=== PATIENT | male | born 1965 | race Caucasian/White ===

== ENCOUNTER 2023-11-08 14:43 | Observation (INO) | payer BC, MEDICARE, SELFPAY ==
[2023-11-08] VITALS (9 sets, daily range): BP systolic 125–144; BP diastolic 57–68; BMI 44.2; BMI 43.1
[2023-11-08 10:45] LABS: Glucose - Point of Care 111 mg/dl (70-99)
--- NOTE | 2023-11-08 11:04 | ED.CVA ---
History of Present Illness
General
Chief Complaint: CVA/TIA Symptoms
Time Seen by Provider: 11/08/23 10:35
Onset of Stroke Symptoms
Onset of symptoms known: Yes
Date of onset of symptoms: 11/08/23
Time of onset of symptoms: 09:30
Travel History
Have you had any contact with someone who has COVID-19?: No
Do you have any symptoms of coronavirus? Fever > 100 degrees, chills, cough, shortness of breath, sore throat, loss of taste or smell, muscle aches, or headache?: No
History of Present Illness
History of Present Illness:
58-year-old male with history of hypertension and hyperlipidemia presents to the emergency department for evaluation of transient memory loss occurring this morning. Exact time of onset is not clear, states he was taking a shower and feels as
though there was a time that he does not recall. Currently feels well with no complaints. He has complete recollection of the events last night and early this morning. He denies any current vision changes, headache, neck pain, extremity
paresthesias, chest pain, or shortness of breath.
Past History
Past History
ED Past Medical History: CAD, HTN, Hypercholesterolemia and Other (obesity)
Social History
Tobacco: Non-smoker
Review of Systems
Review of Systems
Allergies reviewed?: Yes
All Other Systems: ROS reviewed and negative except as documented in HPI and ROS
Phy Exam
Physical Exam
Physical Exam:
GEN: Well appearing, NAD, WDWN
HEENT: Oral mucosa moist, no scleral icterus, no nasal congestion
Cardiac: Regular rate
Lung: No respiratory distress, no tachypnea
MSK: No gross deformity or injuries
Skin: Good color, no pallor or jaundice, no rashes
Neuro: AO x3; CN II-XII grossly intact. BUE strength 5/5 in all mora, sensation intact and symmetric. BLE strength 5/5 in all mora, sensation intact and symmetric
Psych: Calm, cooperative
Course
Orders/Labs/Results
Orders:
Orders
11/08/23 10:53
CT Head W/o Iv Contrast Urgent
Comment:
Reason For Exam: sudden memory loss
11/08/23 11:05
EKG [Electrocardiogram (*1)] Urgent
Reason for Study: TIA/Stroke
EKG- Treatment ONCE
11/08/23 11:10
Complete Blood Count/With Diff Urgent
Comprehensive Metabolic Panel Urgent
11/08/23 13:55
EEG Routine Routine
Reason for Exam: encephlopathy
11/08/23 14:24
Admit/Transfer Patient As Directed
Co-Sign Provider:
Level of Care: Observation services
Assign to:: Telemetry
Physician / Group: verdugo/hospitalist
Diagnosis: TGA vs. r/o CVA
Reason for Telemetry: CVA/TIA
Date to Stop Telemetry: 11/11/23
Time to Stop Telemetry: 11:00
11/08/23 14:25
Code Status As Directed
Resuscitation Status: Full Code
11/08/23 16:00
Tizanidine [Zanaflex] 4 mg PO TID
11/11/23 11:00
DC Protocol for Telemetry ONCE
Abnormal Lab Results
11/08/23 11/08/23
10:43 11:10
RBC 4.59 L 10^6/uL
(4.70-6.10)
MCH 31.2 H pg
(27.0-31.0)
Absolute Eos (auto) 0.8 H 10^3/uL
(0-0.7)
Eosinophils % 15.0 H %
(0-6)
BUN 31 H mg/dl
(9-20)
Glucose 119 H mg/dl
(70-99)
POC Glucose 111 H mg/dl
(70-99)
11/08/23 11:10
11/08/23 11:10
Vital Signs
Initial and Last Documented VS:
Initial Vital Signs
Temp Pulse Resp BP Pulse Ox
98.3 F 65 18 143/68 98
11/08/23 10:50 11/08/23 10:50 11/08/23 10:50 11/08/23 10:50 11/08/23 10:50
Last Documented Vital Signs
Temp Pulse Resp BP Pulse Ox
97.8 F 59 16 143/63 95
11/08/23 16:17 11/08/23 16:17 11/08/23 16:17 11/08/23 16:17 11/08/23 16:17
MDM/Problems Addressed
MDM/Problems Addressed:
Patient no focal neurologic deficits. Certainly concerning for possible TIA given the transient period of confusion. Reviewed case with neurology who recommended admission despite his relatively recent extensive stroke workup last year at [facility]
Kia's that was reportedly unremarkable.
*Critical Care Note
Total Time (30-74mins, 75-104mins- exclusive of procedures): Not Applicable
Update Note
Update Note:
Discussed the symptoms with patient and who indicates that she can the bathroom when on the underwear and seems confused, could not answer simple orientation questions, episode lasted approx 30 mins
ED Attending Note
-
Portions of this chart may have been created with voice recognition software.� Occasional wrong word or��sound alike� substitutions may have occurred due to the inherent limitations of voice recognition software.
Discharge Plan
Departure
Patient Disposition: Admit
Date of Disposition: 11/08/23
Time of Disposition: 12:35
Admit to: Telemetry
Presentation/result/management discussed w/ accepting MD/DO: Hospitalist
Discharge Problem:
Transient ischemic attack (TIA)
Interventions
Interventions:
*Risk Screen - Suicide Last Done: 11/08/23 10:50
*General Assessment Last Done: 11/08/23 10:50
*Neglect/Abuse Screening Last Done: 11/08/23 10:50
ED- Fall Risk Assessment Last Done: 11/08/23 10:58
*ED COVID-19 Vaccine History Last Done: 11/08/23 10:50
ED- Pulmonary Assessment Last Done: 11/08/23 10:58
ED- Neurological Assessment Last Done: 11/08/23 17:31
ED- Cardiac Assessment Last Done: 11/08/23 10:58
ED Swallowing Screen Last Done: 11/08/23 12:00
[2023-11-08 11:20] LABS: % Basophils 1.2 % (0-2); % Immature Granulocytes 0.4 % (0-0.5); % Lymphocytes 23.4 % (20.5-51.1); % Monocytes 8.2 % (1.7-9.3); % Neutrophils 51.8 % (42.2-75.2); Absolute Basophils 0.1 10^3/uL (0-0.2); Absolute Eosinophils 0.8 10^3/uL (0-0.7); Absolute Lymphocytes 1.2 10^3/uL (1.2-3.4); Absolute Monocytes 0.4 10^3/uL (0.1-0.6); Absolute Neutrophils 2.6 10^3/uL (1.4-6.5); Hematocrit 41.6 % (39.0-52.0); Hemoglobin 14.3 g/dL (13.0-18.0); Mean Corp Hgb Conc. 34.4 g/dL (33.0-37.0); Mean Corpuscular Hgb 31.2 pg (27.0-31.0); Mean Corpuscular Volume 90.6 fL (80.0-94.0); Mean Platelet Volume 9.8 fL (7.4-10.4); Nucleated Red Blood Cells % 0 % (-); Platelet Count 194 10^3/uL (130-400); Red Blood Cell Count 4.59 10^6/uL (4.70-6.10); Red Cell Dist. Width 12.8 % (11.5-14.5)
[2023-11-08 11:35] LABS: ALT (SGPT) 44 U/L (0-50); AST (SGOT) 42 U/L (17-59); Albumin 4.3 g/dl (3.5-5.0); Alkaline Phosphatase 75 U/L (38-126); Blood Urea Nitrogen 31 mg/dl (9-20); Calcium 9.5 mg/dl (8.4-10.2); Carbon Dioxide 26 mmol/L (22-30); Chloride 106 mmol/L (98-107); Estimated Creatinine Clearance 123 ml/min; Glucose 119 mg/dl (70-99); Potassium 4.3 mmol/L (3.5-5.1); Sodium 136 mmol/L (135-145); Total Bilirubin 0.7 mg/dl (0.2-1.3); Total Protein 6.8 g/dl (6.3-8.2); eGFR > 60.00
--- NOTE | 2023-11-08 13:44 | CON.NEURO ---
Consultation
Order
CC: none
HPI: This is a 58-year-old RH male who presented to [facility] on November 08, 2023 with encephalopathy.
Mr. Martino reports no complaints except for chronic lower back pain. 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 When he was asked his date of , month, year name
of the president-he was reportedly unable to answer. Mr. Zimmerman was able to converse fluently and had no associated dysarthria, perseveration, receptive or expressive difficulties.
The patient states that he took Percocet and Tizanidine around 7 AM, went to take shower. HE recalls drying himself up before he recalls EMS peroneal being in his house.
ER VS: 143/68, 65, 98% on room air, afebrile
PDMP: Oxycodone-Acetaminophen 7.5-325 90 tabs filled in on 09/05/2023, 10/03/2023, 11/02/2023.
Labs: Glucose�119, normal WBCs, sodium, creatinine.
EKG: Sinus bradycardia at 57, P-R Int : 208 ms, QTc Int : 408 ms,
PMH: R Akins's palsy, h/o lumbar osteomyelitis, CAD, HTN, DLP, BMI 44, vit D deficiency, chronic back pain on opioid therapy
PSH: lumbar kyphoplasty/abscess evacuation?
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
FH:both parents-stroke
All: Penicillin, daptomycin
ROS:Constitutional: Negative. Negative for chills, fever and unexpected weight change.
HENT: Negative for ear pain, hearing loss, tinnitus and trouble swallowing.
Eyes: Negative. Negative for photophobia, pain and visual disturbance.
Respiratory: Negative for cough, choking and shortness of breath.
Cardiovascular: Negative for chest pain, palpitations and leg swelling.
Gastrointestinal: Negative for abdominal pain and vomiting.
Endocrine: Negative. Negative for cold intolerance.
Genitourinary: Negative for dysuria, flank pain and urgency.
Musculoskeletal: Positive for chronic back pain
Skin: Negative for rash.
Allergic/Immunologic: Negative. Negative for immunocompromised state.
Neurological: Negative for dizziness, tremors, seizures, speech difficulty, numbness and headaches.
Psychiatric/Behavioral: Negative for behavioral problems, confusion and hallucinations.
General: Well developed. In no acute distress.
Cardio: Regular rate and rhythm without murmur. Extremities are without cyanosis or edema.
Neuro:
Mental Status: Alert, oriented to person, place, and date. Normal attention and recall. Good fund of knowledge. Follows complex requests across the midline. Comprehension, naming, and repetition intact.
Cranial Nerves: . Pupils are equally round and reactive to light. EOMs full. Visual mora full to confrontation. No ptosis. No nystagmus. V1-V3 intact to light touch and pinprick bilaterally, symmetric. Face symmetric. Normal hearing AU.
The palate elevated well. SCMs and traps 5/5. Tongue midline. No dysarthria.
Motor: Normal bulk and tone. No pronator or arm drift. Strength 5/5 throughout. No clonus.
Reflexes: Limited reflex exam due to cooperation and body habitus.
Sensory: Normal vibration and JPS.
Coordination: No dysmetria or tremor.
Gait: wide stance, truncal flexions, antalgic
Assessment and Plan:
I. Transient encephalopathy. Differential diagnosis includes vascular versus toxic, less likely epileptic
II. Camptocormia. Deferential diagnosis includes dystonia, myopathy, parkinsonism, polyneuropathy
III. Ambulatory dysfunction, h/o lumbar osteomyelitis, epidural abscess
-Fall precautions
-Brain MRI wo zachary to rule out hippocampal infarcts
-ua tox, Mg, CK
-Routine EEG
I personally reviewed all radiology and labs along with past medical records pertinent to current medical problems.
Thank you for allowing us to participate in the care of this patient. We will continue to follow. Please do not hesitate to contact us with any questions or concerns.
Subjective/Objective
Subjective Data
Date of Service: November 08, 2023
Objective Data
Vital Signs
Temp Pulse Resp BP Pulse Ox
36.8 C 65 18 143/68 97
11/08/23 10:50 11/08/23 10:50 11/08/23 10:50 11/08/23 10:50 11/08/23 10:58
Lab Results
11/08/23 11:10
11/08/23 11:10
Sodium 136 mmol/L (135-145) 11/08/23 11:10
Potassium 4.3 mmol/L (3.5-5.1) 11/08/23 11:10
BUN 31 mg/dl (9-20) H 11/08/23 11:10
Glucose 119 mg/dl (70-99) H 11/08/23 11:10
Calcium 9.5 mg/dl (8.4-10.2) 11/08/23 11:10
Patient Allergies
daptomycin Allergy (Verified 11/08/23 10:57)
Unknown
Penicillins Allergy (Verified 11/08/23 10:57)
Unknown
Medications
-
Home Medications
Medication Instructions Recorded
aspirin 325 mg tablet 325 mg PO HS Blood Clot 12/13/21
Prevention/Tx
cholecalciferol (vitamin D3) 50 2,000 unit PO DAILY Supplement 12/13/21
mcg (2,000 unit) tablet
docosahexaenoic acid (dha)-epa 120 1 cap PO DAILY Supplement 12/13/21
mg-180 mg capsule
fenofibrate nanocrystallized 145 145 mg PO HS High Cholesterol 12/13/21
mg tablet
multivitamin 1 ea PO DAILY Supplement 12/13/21
nitroglycerin 0.4 mg sublingual 0.4 mg sublingual [id number] PRN 12/13/21
tablet chest pain
rosuvastatin 40 mg tablet 40 mg PO HS High Cholesterol 12/13/21
tizanidine 4 mg tablet 4 mg PO TID Muscle Spasms 12/13/21
irbesartan 150 2 tab PO DAILY Blood Pressure 11/08/23
mg-hydrochlorothiazide 12.5 mg
tablet
metoprolol succinate 100 mg 100 mg PO HS Blood Pressure 11/08/23
tablet,extended release 24 hr
(Toprol XL)
oxycodone-acetaminophen 7.5 mg-325 1 tab PO TID pain 11/08/23
mg tablet
sennosides 8.6 mg tablet (senna) 8.6 mg PO DAILYPRN PRN constipation 11/08/23
Vital Signs and Labs
-
Vital Signs and Labs:
Vital Signs
Temp Pulse Resp BP Pulse Ox
36.8 C 65 18 143/68 97
11/08/23 10:50 11/08/23 10:50 11/08/23 10:50 11/08/23 10:50 11/08/23 10:58
Lab Results
11/08/23 11:10
11/08/23 11:10
Sodium 136 mmol/L (135-145) 11/08/23 11:10
Potassium 4.3 mmol/L (3.5-5.1) 11/08/23 11:10
BUN 31 mg/dl (9-20) H 11/08/23 11:10
Glucose 119 mg/dl (70-99) H 11/08/23 11:10
Calcium 9.5 mg/dl (8.4-10.2) 11/08/23 11:10
Home Medications
-
Home Medications
aspirin 325 mg tablet 325 mg PO HS Blood Clot Prevention/Tx 12/13/21
cholecalciferol (vitamin D3) 50 mcg (2,000 unit) tablet 2,000 unit PO DAILY Supplement 12/13/21
docosahexaenoic acid (dha)-epa 120 mg-180 mg capsule 1 cap PO DAILY Supplement 12/13/21
fenofibrate nanocrystallized 145 mg tablet 145 mg PO HS High Cholesterol 12/13/21
multivitamin 1 ea PO DAILY Supplement 12/13/21
nitroglycerin 0.4 mg sublingual tablet 0.4 mg sublingual [id number] PRN chest pain 12/13/21
rosuvastatin 40 mg tablet 40 mg PO HS High Cholesterol 12/13/21
tizanidine 4 mg tablet 4 mg PO TID Muscle Spasms 12/13/21
irbesartan 150 mg-hydrochlorothiazide 12.5 mg tablet 2 tab PO DAILY Blood Pressure 11/08/23
metoprolol succinate 100 mg tablet,extended release 24 hr (Toprol XL) 100 mg PO HS Blood Pressure 11/08/23
oxycodone-acetaminophen 7.5 mg-325 mg tablet 1 tab PO TID pain 11/08/23
sennosides 8.6 mg tablet (senna) 8.6 mg PO DAILYPRN PRN constipation 11/08/23
--- NOTE | 2023-11-08 14:13 | HPS.HSE ---
Family Physician
-
Family Physician: Sabrina Warren
Chief Complaint
-
I forgot
History of Present Illness
58-year-old male extensive past medical history who is presenting from home with loss of memory. Patient stated he woke up this morning without any confusion. Patient stated he did activity of daily living brushing his teeth. Subsequently
afterwards he went to take a shower and after he came back he was unable to recall. was at bedside and asked him questions about date, month, year and name of the president. Patient was not able to recall any of those events. Patient during
this time did not complain of any numbing tingling or vision problems or focal weakness. Patient denies any headache. Patient did not have alcohol last night. No prior history of TIA or CVA. Denies any neck pain or vision problems or diplopia or
chest pain or shortness of breath or nausea or vomiting, focal weakness.
Medical History
Past Medical History
Past Medical History: Reports Other
Additional Past Medical History:
Primary hypertension
Hyperlipidemia
History of lumbar spine osteomyelitis status post surgery
Akins's palsy
Left lower extremity cellulitis
Morbid obesity due to excess calories
CAD status post stent
Chronic opiate dependent
Past Surgical History: Reports Other
Additional Past Surgical History:
Spinal lumbar fusion and drainage
Achilles tendon repair
Social History
Tobacco: Former Smoker
Alcohol: Occasional
Personal:
Living: With Family
Family History
Family History: Not pertinent
Allergies / Home Medications
Allergies reflects when Allergies were last updated in [email or web address].
Home Medications with original date entered in [email or web address]
Allergy/Medication List:
Allergies
Allergy/AdvReac Type Severity Reaction Status Date / Time
daptomycin Allergy Unknown Verified 11/08/23 10:57
Penicillins Allergy Unknown Verified 11/08/23 10:57
Home Medications
aspirin 325 mg tablet 325 mg PO HS Blood Clot Prevention/Tx 12/13/21
cholecalciferol (vitamin D3) 50 mcg (2,000 unit) tablet 2,000 unit PO DAILY Supplement 12/13/21
docosahexaenoic acid (dha)-epa 120 mg-180 mg capsule 1 cap PO DAILY Supplement 12/13/21
fenofibrate nanocrystallized 145 mg tablet 145 mg PO HS High Cholesterol 12/13/21
multivitamin 1 ea PO DAILY Supplement 12/13/21
nitroglycerin 0.4 mg sublingual tablet 0.4 mg sublingual [id number] PRN chest pain 12/13/21
rosuvastatin 40 mg tablet 40 mg PO HS High Cholesterol 12/13/21
tizanidine 4 mg tablet 4 mg PO TID Muscle Spasms 12/13/21
irbesartan 150 mg-hydrochlorothiazide 12.5 mg tablet 2 tab PO DAILY Blood Pressure 11/08/23
metoprolol succinate 100 mg tablet,extended release 24 hr (Toprol XL) 100 mg PO HS Blood Pressure 11/08/23
oxycodone-acetaminophen 7.5 mg-325 mg tablet 1 tab PO TID pain 11/08/23
sennosides 8.6 mg tablet (senna) 8.6 mg PO DAILYPRN PRN constipation 11/08/23
Review of Systems
-
History Source: Patient and Family
A 12 point ROS was completed and negative except as noted: Yes
Physical Exam
Vital Signs
Vital Signs
Temp Pulse Resp BP Pulse Ox
98.3 F 65 18 143/68 97
11/08/23 10:50 11/08/23 10:50 11/08/23 10:50 11/08/23 10:50 11/08/23 10:58
Physical Exam
General: Well Developed, Well Nourished, No Apparent Distress and Morbidly Obese
HEENT: NormoCephalic, Anicteric, Moist mucous membranes, Atraumatic, PERRLA, Nose Appears Normal and Ears Appear Normal; No Hearing Impaired
Respiratory: Clear
Cardiac: S1/S2 and Regular Rhythm; No Murmur or Rub
GI: Soft, Non Tender, Non Distended and Normal Bowel Sounds; No Organomegaly
Rectal: Deferred by Provider
Genito-urinary: Deferred by me
Musculoskeletal: No Clubbing, No Cyanosis, Edema, Left Lower Extremity (trace-chronic. ) and Edema, Right Lower Extremity
Skin: Warm; No Rash
Neuro: Awake, Alert, Oriented, AO x 3, No Motor Deficits and Nonfocal/grossly intact
Psych: Calm
Laboratory Results
-
11/08/23 11:10
11/08/23 11:10
Laboratory Results
Total Bilirubin 0.7 mg/dl (0.2-1.3) 11/08/23 11:10
AST 42 U/L (17-59) 11/08/23 11:10
ALT 44 U/L (0-50) 11/08/23 11:10
Alkaline Phosphatase 75 U/L (38-126) 11/08/23 11:10
Impression/Plan
-
#Memory loss likely secondary to transient global amnesia versus TIA rule out CVA vs. low likelihood of epileptic amnesia
CT head negative for acute pathology
MRI of the brain
Defer MRA to neurology
Neurological checks
NIHSS
PT and OT in the morning
Monitor on telemetry
Continue with aspirin. Check aspirin Verify assay
Check a1c
EEG per neurology
Neurological evaluation
#Primary hypertension
Continue ARB/HCTZ and Toprol
#Hyperlipidemia
Check lipid panel continue statin
Chronic back pain opioid dependent
Continue home pain med regiment
PDMP checked and accurate
Continue tizanidine
CAD status post stents
Continue aspirin beta-hamida and statin
Morbid obesity due to excess calories
Counseled on weight loss affects all aspects of medical care
DVT ppx-scds for now
d/w with spouse at bedside in details
I spent a total of 77 minutes with the patient or on the floor. More than 50% of this time involved counseling and coordination of care.
[2023-11-08] MEDS: ROXICODONE 7.5 MG PO ×2 (16:13→21:54)
[2023-11-08] MEDS: TYLENOL 325 MG PO ×2 (16:14→21:56)
[2023-11-08] MEDS: ZANAFLEX 4 MG PO ×2 (16:15→21:54)
--- NOTE | 2023-11-08 16:28 | EEGC.RPT ---
Continuous EEG Report
Recording
Start Date of Data Reviewed: 11/08/23
Done with Video Recording: Yes
Electrocardiogram: Unremarkable
Report
TECHNICAL REMARKS:��This is a technically satisfactory eighteen channel record employing 21 disc electrodes applied according to a measured international 10-20 electrode placement system.��There were no significant technical difficulties.��The study
was done on a [employer] Software System.
STUDY DURATION: 29 mins, 40 secs
�
CLINICAL HISTORY: This is a 58-year-old man with transient encephalopathy. This study was requested to look for epileptiform abnormalities
�
MEDICATIONS: no AED
REPORT: �At the onset of the EEG, the patient is awake. The background activity consists of 10.5-11.5 Hz, persistent, posteriorly dominant, moderate amplitude, symmetric and rhythmic activity that is reactive to eye-opening. Anteriorly, it consists
of a mixture of low voltage indeterminate activity and 20-25 Hz, persistent, low amplitude, symmetric and rhythmic activity.� Stepwise intermittent photic stimulation (1-20 Hz) and hyperventilation did not induce any abnormalities. Drowsiness is
characterized by low amplitude mixed frequency activity, decreased eye blinking, and muscle artifact.
�
IMPRESSION: �This is a normal awake and drowsy EEG. There is no evidence of focal slowing or epileptiform activity.� A normal EEG does not rule out epilepsy. If the clinical picture warrants, a sleep-deprived awake and sleep record may be helpful.
�
--- NOTE | 2023-11-08 18:34 | TRANSFER ---
Pt transferred from ED to room 423. Ambulated from stretcher to bed with single point cane. Pt with mild lower back pain, but denying need for medication at this time. AAOx3, oriented to room and plan of care. Call chen in reach.
[2023-11-08] MEDS: TOPROL XL 100 MG PO (21:56)
[2023-11-08] MEDS: TRICOR 145 MG PO (21:57)
[2023-11-08] MEDS: CRESTOR 40 MG PO (21:57)
[2023-11-08] MEDS: ASPIRIN 325 MG PO (22:10)
[2023-11-09 03:25] VITALS: BP 117/63
[2023-11-09 07:55] VITALS: BP 133/65
[2023-11-09 08:49] LABS: % Eosinophils 9.3 % (0-6); % Immature Granulocytes 0.2 % (0-0.5); % Lymphocytes 23.9 % (20.5-51.1); % Neutrophils 57.6 % (42.2-75.2); Absolute Basophils 0.1 10^3/uL (0-0.2); Absolute Eosinophils 0.6 10^3/uL (0-0.7); Absolute Lymphocytes 1.5 10^3/uL (1.2-3.4); Absolute Monocytes 0.5 10^3/uL (0.1-0.6); Absolute Neutrophils 3.5 10^3/uL (1.4-6.5); Hematocrit 42.6 % (39.0-52.0); Hemoglobin 14.7 g/dL (13.0-18.0); Mean Corp Hgb Conc. 34.5 g/dL (33.0-37.0); Mean Corpuscular Hgb 30.8 pg (27.0-31.0); Mean Corpuscular Volume 89.3 fL (80.0-94.0); Mean Platelet Volume 9.9 fL (7.4-10.4); Nucleated Red Blood Cells % 0 % (-); Platelet Count 213 10^3/uL (130-400); Red Blood Cell Count 4.77 10^6/uL (4.70-6.10); Red Cell Dist. Width 12.9 % (11.5-14.5); White Blood Cell Count 6.1 10^3/uL (4.8-10.8)
[2023-11-09 08:59] LABS: Blood Urea Nitrogen 30 mg/dl (9-20); Carbon Dioxide 23 mmol/L (22-30); Chloride 104 mmol/L (98-107); Estimated Creatinine Clearance > 125 ml/min; Glucose 128 mg/dl (70-99); HDL Cholesterol 40 mg/dl; LDL Cholesterol, Calculated 71 mg/dl; Potassium 4.2 mmol/L (3.5-5.1); Sodium 140 mmol/L (135-145); Total Cholesterol 144 mg/dl (50-199); Triglyceride 168 mg/dl (10-149); Very Low Density Lipoprotein 33 mg/dl (0-30); eGFR > 60.00
[2023-11-09 09:25] LABS: VerifyNow Aspirin 468 ARU
[2023-11-09 09:29] LABS: Glycohemoglobin (HgbA1c) 6.1 % (4.0-5.6)
[2023-11-09 09:36] LABS: Magnesium 1.8 mg/dl (1.6-2.3)
--- NOTE | 2023-11-09 09:48 | PTOTSP ---
Speech Therapy Evaluation
Speech/language at reported baseline. Oropharyngeal function appears intact at the bedside.
Recommend
1. Continue Regular solids / Thin liquids
2. Meds orally per pt preference and RN discretion
3. No further acute LOADING UNIT TOOL SETTER needs. LOADING UNIT TOOL SETTER signing off please reconsult as needed.
[2023-11-09] MEDS: AVAPRO 300 MG PO (10:35)
[2023-11-09] MEDS: ORETIC 25 MG PO (10:36)
[2023-11-09] MEDS: ZANAFLEX 4 MG PO ×2 (10:36→16:20)
[2023-11-09] MEDS: THERAGRAN 1 TABLET PO (10:36)
[2023-11-09] MEDS: VITAMIN D3 (cholecalciferol) 50 MCG PO (10:36)
[2023-11-09] MEDS: ROXICODONE 7.5 MG PO ×2 (10:37→16:20)
[2023-11-09] MEDS: TYLENOL 325 MG PO ×2 (10:37→16:20)
[2023-11-09 10:39] LABS: Erythrocyte Sed Rate 2 mm/hour (0-20)
[2023-11-09 10:55] VITALS: BP 155/81; PULSE 65; O2SAT 94
--- NOTE | 2023-11-09 11:12 | PTOTSP ---
Patient demonstrates functional independence and good insight into safety with bed mobility, transfers and ambulation with use of SPC which he requires secondary to chronic low back pain as well as knee pain.
At this time does not demonstrate continued skilled physical therapy needs and will be discharged. If needs change, please re-consult.
[2023-11-09 11:30] VITALS: BP 129/67
--- NOTE | 2023-11-09 12:07 | W.PN.HOSP.TC ---
Addendum entered and electronically signed by Emery Lindsey MD 11/09/23 15:03:
Discussed results with neurologist and neurologist no acute finding and patient can be discharged
Patient was informed of the MRI results and agreed with discharge planning home
More than 30 minutes spent in discharge including
Final examination of the patient
Summarizing hospital stay
Instructions for continuing care to all relevant caregivers
Preparation of discharge records, prescriptions, and referral forms
Total time spent (in minutes): 42
Original Note:
Today's Communication/Plan
-
await neuro recs
MR brain pending
pain control
Assessment / Plan
Assessment / Plan
#Memory loss likely secondary to transient global amnesia versus TIA rule out CVA vs. low likelihood of epileptic amnesia
CT head negative for acute pathology
MRI of the brain pending
Defer MRA to neurology
Neurological checks
NIHSS
Continue with aspirin. Check aspirin Verify assay-appropriate
Check a1c at 6.1
EEG per neurology completed
Neurological evaluation pending
#Primary hypertension
Continue ARB/HCTZ and Toprol
#Hyperlipidemia
LDL 71. Cont statin.
Chronic back pain opioid dependent
Continue home pain med regiment
PDMP checked and accurate
Continue tizanidine
CAD status post stents
Continue aspirin beta-hamida and statin
Morbid obesity due to excess calories
Counseled on weight loss affects all aspects of medical care
DVT ppx-scds for now
Anticipated Discharge: Within 24 hours
Subjective/Interval History
-
Date of Service: November 09, 2023
No further memory loss issues
no neurological problems
ambulating
states of chronic pain and severe claustrophobia MRI
Objective Data
-
Labs:
Laboratory Results
11/09/23
07:53
WBC 6.1
Hgb 14.7
Hct 42.6
Plt Count 213
Sodium 140
Potassium 4.2
Chloride 104
Carbon Dioxide 23
BUN 30 H
Creatinine 0.7
Glucose 128 H
Calcium 10.0
Vital Signs:
Vital Signs
Temp Pulse Resp BP Pulse Ox
98.1 F 67 16 133/65 97
11/09/23 07:55 11/09/23 07:55 11/09/23 07:55 11/09/23 07:55 11/09/23 07:55
Physical Exam
-
General: Well Developed and No Apparent Distress
HEENT: Normocephalic, Atraumatic and Moist Mucous Membranes
Respiratory: Clear to Auscultation
Cardiac: Regular Rhythm and S1/S2; Negative Murmur, Rub or Gallop
GI: Soft, Nontender, Nondistended and Normal Bowel Sounds; Negative Organomegaly
Rectal: Deferred by Provider
Musculoskeletal: No Clubbing, No Cyanosis and No Edema
Skin: Negative Rash
Neuro: Awake, Alert, Oriented, AO x 3, No Motor Deficits, Nonfocal/Grossly Intact and No Sensory Deficits; Negative Slurred Speech or Facial Droop
Psych: Calm
--- NOTE | 2023-11-09 12:11 | CM ---
Patient seen bedside.
IA completed.
Patient lives with spouse in a rancher style home.
Patient independent prior to admission.
Patient ambulates with a cane.
No VN or skilled rehab in the past.
SANTANA form reviewed and signed.
PCP: Dr Warren
Pharmacy: [facility]
Plan: Home no needs anticipated.
[2023-11-09] MEDS: NSS (PRESERVATIVE FREE) 1 ML IV (12:42)
[2023-11-09] MEDS: ATIVAN 2 MG IV (12:42)
[2023-11-09] MEDS: MORPHINE SULFATE 3 MG IV (12:43)
[2023-11-09 13:14] VITALS: BP 155/81; PULSE 65; O2SAT 94
--- NOTE | 2023-11-09 13:27 | W.PN.NEURO.1 ---
Today's Communication / Plan
-
.
Subjective/Objective
Subjective Data
Date of Service: November 09, 2023
Mr. Martino reports no recurrent episodes of confusion since the admission. He has been afebrile and normotensive.
Routine EEG(11/08/2023)-normal.
Brain MRI is pending.
PMH: R Akins's palsy, h/o lumbar osteomyelitis, CAD, HTN, DLP, BMI 44, vit D deficiency, chronic back pain on opioid therapy
PSH: lumbar kyphoplasty/abscess evacuation?
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
FH:both parents-stroke
All: Penicillin, daptomycin
ROS:Constitutional: Negative. Negative for chills, fever and unexpected weight change.
HENT: Negative for ear pain, hearing loss, tinnitus and trouble swallowing.
Eyes: Negative. Negative for photophobia, pain and visual disturbance.
Respiratory: Negative for cough, choking and shortness of breath.
Cardiovascular: Negative for chest pain, palpitations and leg swelling.
Gastrointestinal: Negative for abdominal pain and vomiting.
Endocrine: Negative. Negative for cold intolerance.
Genitourinary: Negative for dysuria, flank pain and urgency.
Musculoskeletal: Positive for chronic back pain
Skin: Negative for rash.
Allergic/Immunologic: Negative. Negative for immunocompromised state.
Neurological: Negative for dizziness, tremors, seizures, speech difficulty, numbness and headaches.
Psychiatric/Behavioral: Negative for behavioral problems, confusion and hallucinations.
�
�
General: Well developed. In no acute distress.
Cardio: Regular rate and rhythm without murmur. Extremities are without cyanosis or edema.
Neuro:
Mental Status: Alert, oriented to person, place, and date.� Normal attention and recall.� Good fund of knowledge. Follows complex requests across the midline.� Comprehension, naming, and repetition intact.�delayed recall 3/3.
Cranial Nerves: . Pupils are equally round and reactive to light.� EOMs full.� Visual mora full to confrontation.� No ptosis.� No nystagmus.� V1-V3 intact to light touch and pinprick bilaterally, symmetric.� Face symmetric.� Normal hearing AU.�
The palate elevated well.� SCMs and traps 5/5.� Tongue midline.� No dysarthria.
Motor:� � � � Normal bulk and tone.� No pronator or arm drift.� Strength 5/5 throughout. No clonus.
Coordination: No dysmetria or tremor.�
Gait:� � � � � deferred
Assessment and Plan:
�
I. Transient encephalopathy.� Differential diagnosis includes vascular versus toxic, less likely epileptic
II. Camptocormia. Deferential diagnosis includes dystonia, myopathy, parkinsonism, polyneuropathy
III. Ambulatory dysfunction, h/o lumbar osteomyelitis, epidural abscess
-Fall precautions
-Brain MRI wo zachary with sedation
-ua tox
�
I personally reviewed all radiology and labs along with past medical records pertinent to current medical problems.
�
Thank you for allowing us to participate in the care of this patient. We will continue to follow. Please do not hesitate to contact us with any questions or concerns.
�
Objective Data
Vital Signs
Temp Pulse Resp BP Pulse Ox
36.7 C 67 16 129/67 95
11/09/23 11:30 11/09/23 11:30 11/09/23 11:30 11/09/23 11:30 11/09/23 11:30
Lab Results
11/09/23 07:53
11/09/23 07:53
Sodium 140 mmol/L (135-145) 11/09/23 07:53
Potassium 4.2 mmol/L (3.5-5.1) 11/09/23 07:53
BUN 30 mg/dl (9-20) H 11/09/23 07:53
Glucose 128 mg/dl (70-99) H 11/09/23 07:53
Calcium 10.0 mg/dl (8.4-10.2) 11/09/23 07:53
LDL Cholesterol, Calc 71 mg/dl 11/09/23 07:53
Patient Allergies
daptomycin Allergy (Verified 11/08/23 10:57)
Unknown
Penicillins Allergy (Verified 11/08/23 10:57)
Unknown
--- NOTE | 2023-11-09 15:03 | W.DCSUMMARY ---
Discharge Summary
Discharge Data
Date of Admission: 11/08/23
Date of Discharge: 11/09/23
-
Pending Results: No
Hospital Course
58 yo M with past medical history of morbid obesity excess calories, CAD status post stents, chronic back pain daily basis, chronic opioid dependent daily basis, hypertension hyperlipidemia who is presented with acute transient episode of memory
loss. Patient without any neurological deficit. Patient was eval by neurology in the ER. Patient underwent EEG which was found to be within normal limits and no further continuous EEG was planned by neurology. Patient underwent MRI of the brain.
Patient was evaluated by physical and Occupational Therapy. Patient without any further episode of memory difficulty or memory loss. Patient did not have any neurological deficit upon his presentation to the ER and remained at baseline normal
neurological status. MRI of the brain per neurology discussion seems to be within normal limits and no further imaging or monitoring is required in the hospital. Patient will be discharged home with recommendation to follow-up outpatient with
neurology.
Discharge Plan
-
Patient Disposition: Home (Routine Discharge)
Discharge Diagnosis/Procedures: Transient global amnesia
Condition: Fair
Diet: Low Fat
Activity: With assistance and As tolerated
Driving Restrictions: No driving for 24 hours
Referrals:
Sabrina Warren MD [Family Provider] - in less than 1 week
Timo Ruiz MD [Active] - in two to four weeks
Prescriptions:
Continued
multivitamin 1 EACH tablet
1 ea PO DAILY
aspirin 325 MG tablet
325 mg PO HS
tizanidine 4 MG tablet
4 mg PO TID
docosahexaenoic acid-epa 1 CAP capsule
1 cap PO DAILY
rosuvastatin 40 MG tablet
40 mg PO HS
fenofibrate nanocrystallized 145 MG tablet
145 mg PO HS
cholecalciferol (vitamin D3) 2,000 UNIT tablet
2,000 unit PO DAILY
nitroglycerin 0.4 MG tablet, sublingual
0.4 mg sublingual [id number] PRN (Reason: chest pain)
sennosides [senna] 8.6 mg Tablet
8.6 mg PO DAILYPRN PRN (Reason: constipation)
irbesartan-hydrochlorothiazide 150-12.5 mg Tablet
2 tab PO DAILY
metoprolol succinate [Toprol XL] 100 mg Tablet Extended Release 24 Hr
100 mg PO HS
oxycodone-acetaminophen 7.5-325 mg Tablet
1 tab PO TID
Discharge Orders:
Discharge Patient (As Directed); Ordered 11/09/23
Ordered By: Emery Lindsey
Discharge Date and Time
Discharge Date/Time: 11/09/23 17:38
[2023-11-09 15:55] VITALS: BP 127/63
--- NOTE | 2023-11-09 16:33 | CM ---
Patient for d/c home.
Patient denies home care needs.
Spouse will transport.
Plan: home no needs.
== END 2023-11-09 17:38 | disposition home or self-care (01) ==
LOC: 4 WEST ACU 14:43
PROVIDERS: Physician Assistant; ADMITTING PHYSICIAN Hospitalist; CONSULT PHYSICIAN Psychiatry & Neurology Neurology; EMERGENCY PHYSICIAN Emergency Medicine; FAMILY PHYSICIAN Internal Medicine
DX: G45.4 Transient global amnesia (principal); I10 Essential (primary) hypertension; E78.5 Hyperlipidemia, unspecified; G89.29 Other chronic pain; M54.9 Dorsalgia, unspecified; E55.9 Vitamin D deficiency, unspecified; J32.0 Chronic maxillary sinusitis; E66.01 Morbid (severe) obesity due to excess calories; F11.20 Opioid dependence, uncomplicated; Z68.41 Body mass index [BMI] 40.0-44.9, adult; I25.10 Atherosclerotic heart disease of native coronary artery without angina pectoris; Z95.5 Presence of coronary angioplasty implant and graft; Z87.891 Personal history of nicotine dependence; Z88.1 Allergy status to other antibiotic agents; Z88.0 Allergy status to penicillin
CPT/HCPCS: 70450; 70551; 80048; 80053; 80061; 82962; 83036; 83735; 85025; 85576; 85652; 92523; 92610; 93005; 95816; 97116; 97163; 97166; 99285; G0378